=== PATIENT | male | born 1960 | race Caucasian/White ===

== ENCOUNTER → 2016-08-17 | Outpatient (CLI) | payer BC ==
[2016-08-17 08:22] LABS: Urine RBC None Seen /hpf (0 - 3)
[2016-08-17 08:46] LABS: Urine Bilirubin Negative (Negative); Urine Blood Negative /uL (Negative); Urine Color Yellow (Yellow); Urine Glucose Normal (Normal); Urine Ketone Negative (Negative); Urine Nitrite Negative (Negative); Urine Squamous Epithelial Cell FEW /hpf (<5); Urine Urobilinogen Normal (Negative); Urine pH 6.5 (5.0-8.0)
[2016-08-17 09:08] LABS: Basophils # (auto) 0 uL; Basophils % (auto) 0.4 % (0.0-2.0); Eosinophils # (auto) 0.2 uL; Eosinophils % (auto) 2.2 % (0.0-7.0); Hematocrit 46.1 % (41.0-53.0); Hemoglobin 14.7 g/dL (13.5-17.5); Lymphocytes # (auto) 1.8 uL; Lymphocytes % (auto) 23.6 % (10.0-50.0); Mean Corpuscular Hemoglobin 28.8 pg (28.0-32.0); Mean Corpuscular Hgb Conc. 31.9 g/dL (32.0-36.0); Mean Corpuscular Volume 90.3 fL (80.0-100.0); Mean Platelet Volume 9.1 fL (7.4-10.4); Monocytes # (auto) 0.7 uL; Monocytes % (auto) 9.3 % (0.0-12.0); Neutrophils # (auto) 5.1 uL; Neutrophils % (auto) 64.5 % (37.0-80.0); Platelet Count (auto) 234 10^3/uL (140-450); Red Cell Distribution Width 13.6 % (11.6-16.0); White Blood Cell 7.8 10^3/uL (4.4-10.8)
[2016-08-17 14:01] LABS: Cholesterol 133 mg/dL (<200); HDL Cholesterol 36 mg/dL (40-59); LDL Cholesterol 92 mg/dL (<100); Triglycerides 94 mg/dL (<150)
[2016-08-17 14:49] LABS: Albumin 4.3 g/dL (3.4-5.0); BUN/Creatinine Ratio 12.9; Bilirubin, Total 0.7 mg/dL (0.2-1.0); Potassium 4.7 mmol/L (3.5-5.1); Total Protein 7.4 g/dL (6.4-8.2)
== END | disposition home or self-care (01) ==
LOC: LAB 06:36
PROVIDERS: ATTEND Family Medicine
DX: E78.5 Hyperlipidemia, unspecified (principal); I10 Essential (primary) hypertension; E11.9 Type 2 diabetes mellitus without complications; I25.10 Atherosclerotic heart disease of native coronary artery without angina pectoris; Z72.0 Tobacco use
CPT/HCPCS: 36415; 80053; 80061; 81001; 82043; 82607; 83036; 85025

== ENCOUNTER → 2016-08-22 | Outpatient (CLI) | payer BC | END | disposition home or self-care (01) | LOC: LAB 10:44 | PROVIDERS: ATTEND Family Medicine | DX: E11.9 Type 2 diabetes mellitus without complications (principal); I10 Essential (primary) hypertension; I25.10 Atherosclerotic heart disease of native coronary artery without angina pectoris; Z72.0 Tobacco use; E78.5 Hyperlipidemia, unspecified | CPT/HCPCS: 82270 ==

== ENCOUNTER → 2017-06-15 | Outpatient (CLI) | payer BC ==
[2017-06-15 08:05] LABS: Basophils # (auto) 0 uL; Basophils % (auto) 0.5 % (0.0-2.0); Eosinophils # (auto) 0.1 uL; Eosinophils % (auto) 1.5 % (0.0-7.0); Hematocrit 46.4 % (41.0-53.0); Lymphocytes # (auto) 1.8 uL; Mean Corpuscular Hemoglobin 31.1 pg (28.0-32.0); Mean Corpuscular Hgb Conc. 34.6 g/dL (32.0-36.0); Mean Platelet Volume 8.6 fL (6.9-10.8); Monocytes # (auto) 0.8 uL; Monocytes % (auto) 9.7 % (0.0-12.0); Neutrophils # (auto) 5.3 uL; Neutrophils % (auto) 66.3 % (37.0-80.0); Nucleated Red Blood Cells % 0.1 %; Platelet Count (auto) 204 10^3/uL (140-450); Red Cell Distribution Width 13.5 % (11.8-14.3); Urine Bilirubin Negative (Negative); Urine Blood Negative /uL (Negative); Urine Color Yellow (Yellow); Urine Glucose Normal (Normal); Urine Ketone Negative (Negative); Urine Nitrite Negative (Negative); Urine RBC 1 /hpf (0 - 3); Urine Urobilinogen Normal (Negative); Urine pH 6.5 (5.0-8.0)
[2017-06-15 08:53] LABS: Albumin 4.9 g/dL (3.4-5.0); BUN/Creatinine Ratio 18.3; Bilirubin, Total 0.9 mg/dL (0.2-1.0); Calcium 9.6 mg/dL (8.5-10.1); Potassium 4.4 mmol/L (3.5-5.1); Total Protein 8.3 g/dL (6.4-8.2)
== END | disposition home or self-care (01) ==
LOC: LAB 07:16
PROVIDERS: ATTEND Family Medicine
DX: I10 Essential (primary) hypertension (principal); E11.9 Type 2 diabetes mellitus without complications; E78.5 Hyperlipidemia, unspecified
CPT/HCPCS: 36415; 80053; 80061; 81001; 82043; 82306; 82607; 83036; 84153; 85025

== ENCOUNTER 2017-08-08 19:56 | Emergency (ER) | payer BC ==
[~2017-08-08] VITALS: Ht 185.4 cm; Wt 111.1 kg
[2017-08-08 20:59] LABS: Urine Bacteria NONE SEEN /hpf (None Seen); Urine Blood Negative /uL (Negative); Urine WBC 1 /hpf (0 - 3)
[2017-08-08 21:16] LABS: Basophils # (auto) 0 uL; Basophils % (auto) 0.5 % (0.0-2.0); Eosinophils # (auto) 0.2 uL; Eosinophils % (auto) 2.5 % (0.0-7.0); Hematocrit 44.3 % (41.0-53.0); Hemoglobin 14.9 g/dL (13.5-17.5); Lymphocytes % (auto) 28.8 % (10.0-50.0); Mean Corpuscular Hemoglobin 30.5 pg (28.0-32.0); Mean Corpuscular Hgb Conc. 33.6 g/dL (32.0-36.0); Mean Corpuscular Volume 90.7 fL (80.0-100.0); Monocytes # (auto) 0.8 uL; Neutrophils # (auto) 4.1 uL; Neutrophils % (auto) 57.2 % (37.0-80.0); Platelet Count (auto) 208 10^3/uL (140-450); Red Blood Cells 4.89 10^6/uL (4.5-5.90); Red Cell Distribution Width 13.4 % (11.8-14.3); White Blood Cell 7.1 10^3/uL (4.4-10.8)
[2017-08-08 21:36] LABS: Albumin 4.2 g/dL (3.4-5.0); Anion Gap 9 (5-15); BUN/Creatinine Ratio 17.1; Blood Urea Nitrogen 14 mg/dL (7-18); Calcium 9.2 mg/dL (8.5-10.1); Carbon Dioxide 26 mmol/L (21-32); Chloride 102 mmol/L (98-107); GFR African American 124 mL/min; GFR Non-African American 103 mL/min; Glucose 210 mg/dL (74-106); Magnesium 2.4 mg/dL (1.6-2.6); Potassium 4.2 mmol/L (3.5-5.1); Sodium 137 mmol/L (136-145)
[2017-08-08 21:40] LABS: Alanine Aminotransferase 36 U/L (16-61); Alkaline Phosphatase 59 U/L (45-117); Aspartate Aminotransferase 14 U/L (15-37); Bilirubin, Total 0.4 mg/dL (0.2-1.0); Total Protein 7.6 g/dL (6.4-8.2)
[2017-08-08] MEDS ORDERED: TAMSULOSIN HYDROCHLORIDE 0.4 MG CAP PO ONE (23:00)
[2017-08-08] MEDS ORDERED: SODIUM CHLORIDE 0.9% 1,000 ML IV ONE (23:00)
[2017-08-08] MEDS ORDERED: KETOROLAC TROMETH 30 MG/ML 1ML VIAL IV ONE (23:00)
[2017-08-09 00:08] VITALS: BP 130/70
[2017-08-30] MEDS ORDERED: RAMI2.5C33 PO (14:11)
[2017-08-30] MEDS ORDERED: METF-370 PO (14:11)
[2017-08-30] MEDS ORDERED: GEMF600T3 PO (14:11)
[2017-08-30] MEDS ORDERED: CLOP75TA28 PO (14:11)
[2017-08-30] MEDS ORDERED: ASPI81TA27 PO (14:11)
[2017-08-30] MEDS ORDERED: GLIP-115 PO (14:11)
== END 2017-08-09 00:33 | disposition home or self-care (01) ==
LOC: ER 19:58
DX: N20.0 Calculus of kidney (principal); E11.9 Type 2 diabetes mellitus without complications
CPT/HCPCS: 36415; 74176; 80053; 81001; 83735; 84484; 85025; 93005; 96360

== ENCOUNTER 2017-09-04 06:02 | Day surgery (SDC) | payer BC ==
[2017-08-30 08:58] LABS: Basophils # (auto) 0 uL; Basophils % (auto) 0.5 % (0.0-2.0); Eosinophils # (auto) 0.1 uL; Eosinophils % (auto) 1.7 % (0.0-7.0); Hematocrit 45.7 % (41.0-53.0); Hemoglobin 15.3 g/dL (13.5-17.5); Lymphocytes # (auto) 2.2 uL; Lymphocytes % (auto) 27.5 % (10.0-50.0); Mean Corpuscular Hemoglobin 30.3 pg (28.0-32.0); Mean Corpuscular Hgb Conc. 33.5 g/dL (32.0-36.0); Mean Corpuscular Volume 90.3 fL (80.0-100.0); Monocytes # (auto) 0.8 uL; Monocytes % (auto) 10.7 % (0.0-12.0); Neutrophils # (auto) 4.7 uL; Neutrophils % (auto) 59.6 % (37.0-80.0); Nucleated Red Blood Cells % 0.1 %; Platelet Count (auto) 219 10^3/uL (140-450); Red Blood Cells 5.06 10^6/uL (4.5-5.90); Red Cell Distribution Width 13.6 % (11.8-14.3); White Blood Cell 7.8 10^3/uL (4.4-10.8)
[2017-08-30 09:00] LABS: Urine Bacteria NONE SEEN /hpf (None Seen); Urine Blood Negative /uL (Negative); Urine Specific Gravity 1.005 (1.001-1.035); Urine WBC <1 /hpf (0 - 3)
[2017-08-30 09:11] LABS: INR 0.93 (0.9-1.15); Prothrombin Time 10.1 sec (9.37-12.3)
[2017-08-30 09:15] LABS: Albumin 4.5 g/dL (3.4-5.0); BUN/Creatinine Ratio 10.7; Calcium 9.2 mg/dL (8.5-10.1); Potassium 4.6 mmol/L (3.5-5.1)
[2017-08-30 09:17] LABS: Bilirubin, Total 0.6 mg/dL (0.2-1.0); Total Protein 7.8 g/dL (6.4-8.2)
[~2017-09-04] VITALS: Ht 185.4 cm; Wt 111.1 kg
[~2017-09-04 06:02] MED LIST: ASPI81TA27 PO; CLOP75TA28 PO; GEMF600T3 PO; GLIP-115 PO; METF-370 PO; RAMI2.5C33 PO
[2017-09-04] MEDS ORDERED: ceFAZolin 1GM/50ML 50 ML IV ONE (06:20)
[2017-09-04] MEDS ORDERED: fentaNYL CITRATE 100 MCG/2 ML VL ONE (07:21)
[2017-09-04] MEDS ORDERED: PROPOFOL 10 MG/ML 20 ML IV ONE (07:21)
[2017-09-04] MEDS ORDERED: MIDAZOLAM HCL 1MG/1ML-2 ML VIAL ONE (07:21)
[2017-09-04] MEDS ORDERED: ONDANSETRON HCL 4 MG/2 ML VIAL ONE (07:21)
[2017-09-04] MEDS ORDERED: SODIUM CHLORIDE LOCK 10 ML ONE (07:21)
[2017-09-04] MEDS ORDERED: ACCU-CHEK COMFORT CURVE STRIP VI ONE (07:45)
[2017-09-04] MEDS ORDERED: HYDROmorphone HCL 2 MG/ML VL IV PRN (07:45)
[2017-09-04] MEDS ORDERED: METOCLOPRAMIDE HCL 5MG/ml INJ 2ml VIAL IV ONE (07:45)
[2017-09-04 08:38] VITALS: BP 116/70
== END 2017-09-04 08:40 | disposition home or self-care (01) ==
LOC: SUR 06:02
PROVIDERS: ATTEND Urology
DX: N20.0 Calculus of kidney (principal); I10 Essential (primary) hypertension; I25.10 Atherosclerotic heart disease of native coronary artery without angina pectoris; I25.2 Old myocardial infarction; E11.9 Type 2 diabetes mellitus without complications; E78.3 Hyperchylomicronemia; Z87.891 Personal history of nicotine dependence; E66.9 Obesity, unspecified; Z68.32 Body mass index [BMI] 32.0-32.9, adult
CPT/HCPCS: 36415; 50590; 80053; 81001; 82962; 85025; 85610; 85730; J0690; J2250; J2405; J2704; J3010

== ENCOUNTER 2017-12-24 09:29 | Inpatient (IN) | payer BC ==
[~2017-12-24] VITALS: Ht 185.4 cm; Wt 116.0 kg
[2017-12-24] MEDS ORDERED: SODIUM CHLORIDE 0.9% 500 ML IV ONE (10:27)
[2017-12-24] MEDS ORDERED: ONDANSETRON HCL 4 MG/2 ML VIAL IV ONE (10:30)
[2017-12-24] MEDS ORDERED: MORPHINE SULF INJ 2 MG/ML SYRINGE 1ML IV ONE (10:30)
[2017-12-24 11:00] LABS: Basophils # (auto) 0 uL; Basophils % (auto) 0.6 % (0.0-2.0); Eosinophils # (auto) 0.1 uL; Eosinophils % (auto) 2.2 % (0.0-7.0); Hematocrit 45.3 % (41.0-53.0); Hemoglobin 15.8 g/dL (13.5-17.5); Lymphocytes # (auto) 1.8 uL; Mean Corpuscular Hemoglobin 31.1 pg (28.0-32.0); Mean Corpuscular Hgb Conc. 34.8 g/dL (32.0-36.0); Mean Corpuscular Volume 89.4 fL (80.0-100.0); Monocytes # (auto) 0.7 uL; Monocytes % (auto) 11.2 % (0.0-12.0); Neutrophils # (auto) 3.3 uL; Nucleated Red Blood Cells % 0.1 %; Platelet Count (auto) 199 10^3/uL (140-450); Red Blood Cells 5.07 10^6/uL (4.5-5.90); Red Cell Distribution Width 13.7 % (11.8-14.3); White Blood Cell 5.9 10^3/uL (4.4-10.8)
[2017-12-24 11:14] LABS: INR 0.96 (0.9-1.15); Prothrombin Time 10.3 sec (9.27-12.13)
[2017-12-24 11:17] LABS: Albumin 4.1 g/dL (3.4-5.0); BUN/Creatinine Ratio 17.3; Calcium 8.4 mg/dL (8.5-10.1); Potassium 4.3 mmol/L (3.5-5.1)
[2017-12-24 11:20] LABS: Bilirubin, Total 1.2 mg/dL (0.2-1.0)
[2017-12-24] MEDS ORDERED: LEVOFLOXACIN 500MG 100 ML IV ONE (11:45)
[2017-12-24] MEDS ORDERED: LIDOCAINE 2% (LOCAL ANESTH.) PF 5ml SDV ONE ×2 (11:50→12:07)
[2017-12-24 12:21] LABS: Urine Bacteria NONE SEEN /hpf (None Seen); Urine Blood Negative /uL (Negative); Urine Specific Gravity 1.011 (1.001-1.035); Urine WBC 1 /hpf (0 - 3)
[2017-12-24] MEDS ORDERED: MORPHINE SULF INJ 2 MG/ML SYRINGE 1ML IV PRN (13:00)
[2017-12-24] MEDS ORDERED: ONDANSETRON HCL 4 MG/2 ML VIAL IV PRN (13:00)
[2017-12-24] MEDS ORDERED: HYDROcodone-ACET 5/325MG TAB PO PRN (13:00)
[2017-12-24] MEDS ORDERED: DEXTROSE (50%) 50ML SYRG IV PRN (13:00)
[2017-12-24] MEDS: SODIUM CHLORIDE 0.9% 1,000 ML IV SCH ×2 (13:00→23:00)
[2017-12-24] MEDS: KETOROLAC TROMETH 30 MG/ML 1ML VIAL IV SCH ×2 (14:00→17:32)
[2017-12-24] MEDS: CYCLOBENZAPRINE HCL 10 MG TAB PO SCH ×2 (14:06→22:33)
[2017-12-24 15:17] LABS: CSF White Blood Cells 1.1 CUMM (0-5)
[2017-12-24 15:53] VITALS: BP 131/89
[2017-12-24] MEDS: InsuLIN REG 1unit/0.01ml Soln (100units/ml) SC SCH ×2 (17:00→22:00)
[2017-12-24] MEDS: ACCU-CHEK COMFORT CURVE STRIP VI SCH ×2 (17:32→22:00)
[2017-12-24] MEDS ORDERED: LORazepam 2MG/ML-1ML VIAL IV PRN (19:30)
[2017-12-25] MEDS: KETOROLAC TROMETH 30 MG/ML 1ML VIAL IV SCH ×2 (00:21→06:50)
[2017-12-25 05:30] VITALS: BP 148/87
[2017-12-25] MEDS: CYCLOBENZAPRINE HCL 10 MG TAB PO SCH ×3 (06:00→21:13)
[2017-12-25] MEDS: InsuLIN REG 1unit/0.01ml Soln (100units/ml) SC SCH ×4 (06:55→21:15)
[2017-12-25] MEDS: ACCU-CHEK COMFORT CURVE STRIP VI SCH ×4 (06:55→21:13)
[2017-12-25 07:15] LABS: Basophils # (auto) 0 uL; Basophils % (auto) 0.5 % (0.0-2.0); Eosinophils # (auto) 0.2 uL; Eosinophils % (auto) 3.3 % (0.0-7.0); Hematocrit 44.3 % (41.0-53.0); Hemoglobin 15.1 g/dL (13.5-17.5); Lymphocytes # (auto) 1.5 uL; Lymphocytes % (auto) 27.4 % (10.0-50.0); Mean Corpuscular Hemoglobin 30.7 pg (28.0-32.0); Mean Corpuscular Hgb Conc. 34.2 g/dL (32.0-36.0); Mean Corpuscular Volume 89.8 fL (80.0-100.0); Monocytes # (auto) 0.6 uL; Monocytes % (auto) 11.1 % (0.0-12.0); Neutrophils # (auto) 3.1 uL; Neutrophils % (auto) 57.7 % (37.0-80.0); Nucleated Red Blood Cells % 0.2 %; Platelet Count (auto) 177 10^3/uL (140-450); Red Blood Cells 4.93 10^6/uL (4.5-5.90); Red Cell Distribution Width 13.5 % (11.8-14.3); White Blood Cell 5.4 10^3/uL (4.4-10.8)
[2017-12-25 07:34] LABS: Calcium 8.6 mg/dL (8.5-10.1); Potassium 4.8 mmol/L (3.5-5.1)
[2017-12-25 07:36] LABS: BUN/Creatinine Ratio 14.8
[2017-12-25 08:00] VITALS: BP 154/93
[2017-12-25] MEDS: CLOPIDOGREL BISULFATE 75 MG TAB PO SCH (10:12)
[2017-12-25] MEDS: RAMIPRIL 2.5 MG CAP PO SCH (10:14)
[2017-12-25] MEDS: ASPirin 81 mg TAB PO SCH (10:14)
[2017-12-25] MEDS: SODIUM CHLORIDE 0.9% 1,000 ML IV SCH ×2 (10:22→17:07)
[2017-12-25 12:00] VITALS: BP 124/76
[2017-12-25] MEDS: KETOROLAC TROMETH 30 MG/ML 1ML VIAL IV PRN ×2 (12:31→18:37)
[2017-12-25 15:00] VITALS: BP 128/78
[2017-12-25 22:00] VITALS: BP 155/78
[2017-12-26 05:00] VITALS: BP 134/72
[2017-12-26] MEDS: SODIUM CHLORIDE 0.9% 1,000 ML IV SCH (05:00)
[2017-12-26] MEDS: CYCLOBENZAPRINE HCL 10 MG TAB PO SCH (06:00)
[2017-12-26] MEDS: InsuLIN REG 1unit/0.01ml Soln (100units/ml) SC SCH ×2 (06:16→11:30)
[2017-12-26] MEDS: ACCU-CHEK COMFORT CURVE STRIP VI SCH ×2 (06:16→11:30)
[2017-12-26] MEDS: KETOROLAC TROMETH 30 MG/ML 1ML VIAL IV PRN (06:41)
[2017-12-26 07:48] VITALS: BP 148/87
[2017-12-26 08:30] VITALS: BP 153/110
[2017-12-26] MEDS ORDERED: FAMOTIDINE 20 MG TAB PO SCH (10:00)
[2017-12-26] MEDS ORDERED: predniSONE 20 MG TAB PO SCH (10:00)
[2017-12-26] MEDS: RAMIPRIL 2.5 MG CAP PO SCH (10:21)
[2017-12-26] MEDS: ASPirin 81 mg TAB PO SCH (10:21)
[2017-12-26] MEDS: CLOPIDOGREL BISULFATE 75 MG TAB PO SCH (10:22)
[2017-12-26 11:10] VITALS: BP 141/78
[2017-12-26 12:53] VITALS: BP 141/78
== END 2017-12-26 12:00 | disposition home or self-care (01) | DRG 551 ==
LOC: ER 09:29 → OVERFLOW 09:30 → CENTRAL 15:24
PROVIDERS: ADMIT Internal Medicine; ATTEND Internal Medicine
PROC: 00JU3ZZ Inspection of Spinal Canal, Percutaneous Approach (ICD-10-PCS; principal; 2017-12-24)
PROC: B01B1ZZ Fluoroscopy of Spinal Cord using Low Osmolar Contrast (ICD-10-PCS; 2017-12-24)
DX: M48.02 Spinal stenosis, cervical region (principal); J18.9 Pneumonia, unspecified organism; E11.9 Type 2 diabetes mellitus without complications; E66.9 Obesity, unspecified; Z68.33 Body mass index [BMI] 33.0-33.9, adult; E78.5 Hyperlipidemia, unspecified; F17.210 Nicotine dependence, cigarettes, uncomplicated; I10 Essential (primary) hypertension; I25.10 Atherosclerotic heart disease of native coronary artery without angina pectoris; M47.22 Other spondylosis with radiculopathy, cervical region; Z86.61 Personal history of infections of the central nervous system; I25.2 Old myocardial infarction; Z95.1 Presence of aortocoronary bypass graft; Z95.5 Presence of coronary angioplasty implant and graft; Z79.899 Other long term (current) drug therapy; Z79.82 Long term (current) use of aspirin; Z79.84 Long term (current) use of oral hypoglycemic drugs
CPT/HCPCS: 36415; 62272; 71046; 72141; 80048; 80053; 81001; 82550; 82945; 82962; 83036; 83735; 84157; 85025; 85610; 85652; 85730; 86038; 87040; 87070; 87205; 89051; 93005; 94761; 96361; 96365; 96375; J1815; J1885; J1956; J2405

== ENCOUNTER 2018-02-13 05:42 | Emergency (ER) | payer BC ==
[~2018-02-13] VITALS: Ht 185.4 cm; Wt 106.6 kg
[2018-02-13 06:40] LABS: Urine Bacteria FEW /hpf (None Seen); Urine Blood 3+ /uL (Negative); Urine Specific Gravity 1.006 (1.001-1.035); Urine WBC 48 /hpf (0 - 3)
[2018-02-13 06:50] LABS: Basophils # (auto) 0.1 uL; Basophils % (auto) 0.4 % (0.0-2.0); Eosinophils # (auto) 0 uL; Eosinophils % (auto) 0.4 % (0.0-7.0); Hematocrit 43.3 % (41.0-53.0); Hemoglobin 14.4 g/dL (13.5-17.5); Lymphocytes # (auto) 1.5 uL; Lymphocytes % (auto) 13.3 % (10.0-50.0); Mean Corpuscular Hemoglobin 29.9 pg (28.0-32.0); Mean Corpuscular Hgb Conc. 33.2 g/dL (32.0-36.0); Mean Corpuscular Volume 89.9 fL (80.0-100.0); Monocytes # (auto) 0.9 uL; Monocytes % (auto) 7.8 % (0.0-12.0); Neutrophils # (auto) 9.1 uL; Neutrophils % (auto) 78.1 % (37.0-80.0); Platelet Count (auto) 231 10^3/uL (140-450); Red Blood Cells 4.81 10^6/uL (4.5-5.90); Red Cell Distribution Width 13.6 % (11.8-14.3); White Blood Cell 11.6 10^3/uL (4.4-10.8)
[2018-02-13 06:57] LABS: INR 0.96 (0.9-1.15); Partial Thromboplastin Time 24.9 sec (23.78-33.04); Prothrombin Time 10.3 sec (9.27-12.13)
[2018-02-13 07:10] LABS: Calcium 8.9 mg/dL (8.5-10.1); Potassium 4.7 mmol/L (3.5-5.1)
[2018-02-13 07:12] LABS: BUN/Creatinine Ratio 21.8
[2018-02-13 07:20] LABS: Bilirubin, Total 0.6 mg/dL (0.2-1.0); Total Protein 7.5 g/dL (6.4-8.2)
[2018-02-13] MEDS ORDERED: SODIUM CHLORIDE 0.9% 1,000 ML IVB ONE (07:49)
[2018-02-13] MEDS ORDERED: cefTRIAXone 1GM/10ml IVPUSH 10 ML IV ONE (08:00)
[2018-02-13] MEDS ORDERED: cefTRIAXone SOD 1,000 MG VL IM ONE (09:00)
[2018-02-13 09:23] VITALS: BP 152/74
== END 2018-02-13 10:38 | disposition home or self-care (01) ==
LOC: ER 05:45
DX: N39.0 Urinary tract infection, site not specified (principal); E11.65 Type 2 diabetes mellitus with hyperglycemia; I10 Essential (primary) hypertension; F17.210 Nicotine dependence, cigarettes, uncomplicated; I25.2 Old myocardial infarction; Z79.84 Long term (current) use of oral hypoglycemic drugs; Z79.82 Long term (current) use of aspirin; Z79.899 Other long term (current) drug therapy; Z95.1 Presence of aortocoronary bypass graft
CPT/HCPCS: 36415; 80053; 81001; 85025; 85610; 85730; 87086; 87088; 87186; 96372; 99284; J0696